=== PATIENT | female | born 1995 | race Two or more races ===

== ENCOUNTER 2024-08-12 15:58 | Emergency (ER) | payer OTHER ==
[~2024-08-12] VITALS: Ht 157.5 cm; Wt 83.6 kg
[2024-08-12 16:39] VITALS: BP 137/93; PULSE 115; RESP 16; TEMP 98.5; O2SAT 97
[2024-08-12] MEDS: SODIUM CHLORIDE 0.9% 1,000 ML IV ONE (16:45)
--- NOTE | 2024-08-12 17:24 | DVH ---
EXAM: XY CHEST XRAY 1 VIEW TECHNIQUE: Single frontal chest radiograph CLINICAL HISTORY: r/o pna COMPARISON: None Findings/Impression: Frontal chest radiograph demonstrates no acute osseous or superficial soft tissue abnormalities. The trachea is midline. The cardiac silhouette and mediastinum are within normal limits. No pneumothorax, pleural effusions, or consolidations.
--- NOTE | 2024-08-12 17:32 | ED.PDOC ---
HPI (NEURO) HPI Comments 28 year old with a history of migraines presents for reoccurring migraine that comes and goes over the last 3-4 weeks. Able to get temporary relief with [id number] medications. Currently on her menstrual cycle. No red flag Chief Complaint: Headache Time Seen by MD: 16:27 Reviewed Notes: Nurses Notes, Medications, Allergies Information Source: Patient Mode of Arrival: Ambulatory Family History Family History: Reviewed,noncontributory to illness Social History Smoker: Non-Smoker Alcohol: Denies ETOH Use Drugs: Denies Drug Use All Other Systems: Reviewed and Negative (Per HPI) Physical Exam General Appearance: No Apparent Distress, Normal HEENT: Head (Normocephalic atraumatic), Normal ENT Inspection, Pharynx Normal, TMs Normal Neck: Full Range of Motion, Non-Tender, Normal, Normal Inspection Respiratory: Chest Non-Tender, Lungs Clear, No Accessory Muscle Use, No Respiratory Distress, Normal Breath Sounds Cardiovascular: No Edema, No JVD, No Murmur, No Gallop, Normal Peripheral Pulses, Regular Rate/Rhythm Breast Exam: Deferred Gastrointestinal: No Organomegaly, Non Tender, No Pulsatile Mass, Normal Bowel Sounds, Soft Genitalia: Deferred Pelvic: Deferred Rectal: Deferred Extremities: No calf tenderness, Normal capillary refill, Normal inspection, Normal range of motion, Non-tender, No pedal edema Musculoskeletal : Apperance: Normal Neurologic: Alert, color consultant II-XII nml as Tested, No Motor Deficits, Normal Affect, Normal Mood, No Sensory Deficits Cerebellar Function: Normal Reflexes: Normal Skin: Dry, Normal Color, Warm Lymphatic: No Adenopathy Was a procedure done? Was a procedure done?: No Differential Diagnosis (SZ) Headache: Migraine X-Ray, Labs, Meds, VS Vital Signs Date Time Temp Pulse Resp B/P (MAP) Pulse Ox O2 Delivery O2 Flow Rate FiO2 08/12/24 16:39 98.5 115 16 137/93 (108) 97 98.5 08/12/24 16:39 115 16 97 Room Air 08/12/24 16:07 98.5 115 16 137/93 (108) 97 98.5 PATIENT: HA DE SOUZAETACCT: [id number]: [id number] : 1995 LOC: ER ROOM / BED: / AGE / SEX: 28 / F ADM STATUS: REG ER SERVICE [id number] ORDERING PHYSICIAN: SHANNON LO NP PROCEDURE(s): CXR1 - CHEST XRAY 1 VIEW REASON: r/o pna ORDER NUMBER(s): [id number], ACCESSION NUMBER(s): [id number] EXAM: XY CHEST XRAY 1 VIEW TECHNIQUE: Single frontal chest radiograph CLINICAL HISTORY: r/o pna COMPARISON: None Findings/Impression: Frontal chest radiograph demonstrates no acute osseous or superficial soft tissue abnormalities. The trachea is midline. The cardiac silhouette and mediastinum are within normal limits. No pneumothorax, pleural effusions, or consolidations. ATED BY: MICHELA LANDA DO DICTATED DATE/TIME: 08/12/241720 SIGNED BY: MICHELA LANDA DO SIGNED DATE/TIME: 08/12/241720 CC: X-Ray, Labs, Meds, VS Comment The patients history and physical exam are consistent with a benign headache. Likely migraine Considered subarachnoid hemorrhage however this is less likely given that the patient has had a similar and worst headaches in the past, the lack of trauma, and the slow onset with intermittent symptomatology. Low suspicion of meningitis given the afebrile, well-appearing, and without meningismus on exam. Additionally no history of recent trauma prior to the patient experiencing this headache. Finally, the patient does not report any positional exacerbation with the headaches and has not had a recent spinal procedures therefore my suspicion for central causes and post procedural etiologies of headaches are less likely. Given benign exam and history, CT imaging was discussed with the patient and was deferred during this visit. While in the ED, the patient was treated with Migraine cocktail Patient was overall well-appearing and hemodynamically stable in the ED. They were able to ambulate and continued to have a nonfocal exam in the emergency department. Discussed continued symptomatic treatment at home. Recommended follow up with PCP. Return precautions to the ED discussed Counseled to start headache diary Recommended headache elimination diet Avoid prolonged periods of fasting Drink plenty of water Exercise daily, limit screen time Aim to sleep 8 to 9 hours per night, practice good hygiene ED precautions given Time of 1ST Reevaluation: 17:50 Reevaluation 1ST: Improved Patient Education/Counseling: Diagnosis, Treatment Family Education/Counseling: Diagnosis, Treatment Departure 1 Departure Time of Disposition: 17:51 Impression: Primary Impression: Migraine Qualified Codes: G43.909 - Migraine, unspecified, not intractable, without status migrainosus Disposition: HOME / SELF CARE / HOMELESS Condition: Stable e-Prescriptions Benzonatate (Benzonatate) 100 Mg Cap 1 CAP PO TID for 10 Days, #30 CAP 0 Refills Prov: SHANNON LO NP 08/12/24 Promethazine-Dm (Promethazine Dm 6.25-15 mg/5Ml) 1 Bette Bette 5 ML PO TID for 10 Days, #150 ML 0 Refills Prov: SHANNON LO NP 08/12/24 Riboflavin (RIBOFLAVIN) 400 Mg Tab 400 MG OR DAILY for 30 Days, #30 TAB 0 Refills Prov: SHANNON LO NP 08/12/24 Magnesium Oxide (MAGNESIUM OXIDE) 400 Mg Tab 1 TAB PO DAILY for 30 Days, #30 TAB 0 Refills Prov: SHANNON LO NP 08/12/24 Critical Care Note Critical Care Time?: No Stability Stability form required: No Heart Score Heart Score: Heart Score Response (Comments) Value History N/A 0 EKG N/A 0 Age N/A 0 Risk Factors N/A 0 Troponin N/A 0 Total 0 SHANNON LO NP Aug 12, 2024 17:32
[2024-08-12] MEDS: PROCHLORPERAZINE EDISYLATE 5 MG/ML 2ML VIAL IV ONE (17:42)
[2024-08-12] MEDS: diphenhdrAMINE HCL 50 MG/1 ML VL IV ONE (17:42)
[2024-08-12] MEDS: KETOROLAC TROMETH 30 MG/ML 1ML VIAL IV ONE (17:42)
[2024-08-12] MEDS ORDERED: RIBO400T OR (17:52)
[2024-08-12] MEDS ORDERED: MAGN400T40 PO (17:52)
[2024-08-12] MEDS ORDERED: PROM1SOL4 PO (18:09)
[2024-08-12] MEDS ORDERED: BENZ100C97 PO (18:09)
== END 2024-08-12 18:28 | disposition home or self-care (01) ==
LOC: ER 15:58
DX: G43.909 Migraine, unspecified, not intractable, without status migrainosus (principal)
CPT/HCPCS: 71045; 99283; J0780; J1200; J1885